=== PATIENT | male | born 1975 | race Caucasian/White ===

== ENCOUNTER 2016-02-16 20:13 | Emergency (ER) | payer BC, MEDICAID, OTHER ==
[~2016-02-16] VITALS: Ht 170.2 cm; Wt 100.0 kg
[~2016-02-16 20:13] MED LIST: ACET500C5 PO; BUSP15TA3 PO; BUTA1CAP39 PO; CITA-104 PO; IBUP400T22 PO; ONDA4TAB35 PO; OSLT75C PO; UDROBDM PO
[2016-02-16 20:35] VITALS: Ht 170.2 cm; Wt 100.0 kg
[2016-02-16] MEDS ORDERED: IBUP-1542 PO (21:17)
[2016-02-16] MEDS ORDERED: BENZ100C70 PO (21:17)
[2016-02-16] MEDS ORDERED: ALBU8.5H3 INH (21:17)
[2016-02-16] MEDS ORDERED: CETI10CA PO (21:17)
[2016-02-16] MEDS ORDERED: FLUT16SP17 NASAL (21:17)
--- NOTE | 2016-02-16 21:42 | ERD ---
ER Documentation Chief Complaint Date/Time DATE: 02/16/16 TIME: 21:37 Chief Complaint flu-like symptoms w/fever,HAs,bodyaches pains,sore throat for 3 days HPI 40 year old male presents here in the ER for complaints of cough, runny nose, nasal congestion, bodyaches, headache, 3 days. Patient has been having dry cough , does not cough up any phlegm or blood. Patient does not have any shortness breath or wheezing. Patient did not take any medications of her symptoms. Patient denies any chest pain or palpitations. Patient denies any vomiting. Patient complaining of sore throat, burning pain, for/10 scale, is worse upon swallowing. ROS All systems reviewed and are negative except as per history of present illness. Medications Home Meds Active Scripts Cetirizine Hcl* (Zyrtec*) 10 Mg Capsule, 10 MG PO DAILY, #30 TAB.CHEW Prov:AL CRUMP NP 02/16/16 Benzonatate* (Tessalon Perle*) 100 Mg Capsule, 100 MG PO Q8H Y for COUGH, #20 CAP Prov:AL CRUMP NP 02/16/16 Ibuprofen* (Motrin*) 600 Mg Tab, 600 MG PO Q6H Y for PAIN AND OR ELEVATED TEMP, #30 TAB Prov:AL CRUMP NP 02/16/16 Fluticasone Propionate* (Fluticasone Propionate* Nasal) 50 Mcg/[place] - 16 Gm [place].susp, 2 SPRAYS NASAL DAILY, #1 BOTTLE TO EACH NOSTRIL Prov:AL CRUMP NP 02/16/16 Albuterol Sulfate* (Proair HFA*) 8.5 Gm Hfa.aer.ad, 2 PUFF INH Q4H Y for WHEEZING AND SOB, #1 INHALER Prov:AL CRUMP NP 02/16/16 Oseltamivir Phosphate* (Tamiflu*) 75 Mg Capsule, 75 MG PO BID, #10 CAP 0 Refills Prov:DILLAN VIDAL PA-C 06/14/15 Guaifenesin-Dextromethorphan* (Robitussin* DM) 100MG/10MG/5ML Syrup, 5 ML PO Q6H Y for COUGH, #120 ML 0 Refills Prov:NOA VIDALNEGRA XIAO 06/14/15 Ibuprofen* (Motrin*) 400 Mg Tab, 400 MG PO Q6, #30 TAB 0 Refills Prov:DILLAN VIDAL NINOSKA 06/14/15 Acetaminophen* (Tylophen*) 500 Mg Capsule, 1 CAP PO Q6H Y for PAIN AND OR ELEVATED TEMP, #30 CAP 0 Refills Prov:YOUNGDILLAN XIAO 06/14/15 Ondansetron Hcl* (Zofran* ODT) 4 mg -ODT Tab.disper, 4 MG PO Q8 Y for NAUSEA AND /OR VOMITING, #30 TAB Prov:AL CRUMP NP 04/04/15 Pbbzzjfnovqvr-Npitecyzsl-Blgzqjzs-Codeine* (Fioricet w/ Codeine*) [id number]- 30MG Capsule, 1 CAP PO Q6H Y for PAIN LEVEL 1-5, #20 CAP Prov:AL CRUMP WELLNESS NURSE RN 04/04/15 Reported Medications Citalopram Hydrobromide* (Citalopram Hydrobromide*) 40 Mg Tablet, 40 MG PO DAILY 04/04/15 Buspirone Hcl* (Buspirone Hcl*) 15 Mg Tablet, 15 MG PO TID 04/04/15 Allergies Allergies: Coded Allergies: No Known Drug Allergies (Verified Allergy, Unknown, 08/13/13) PMhx/Soc History of Surgery: Yes (HAND AND ARM SURGERY) Anesthesia Reaction: No Hx Neurological Disorder: No Hx Respiratory Disorders: No Hx Cardiac Disorders: No Hx Psychiatric Problems: No Hx Miscellaneous Medical Probl: No (DEPRESSION) Hx Alcohol Use: Yes Hx Substance Use: No Hx Tobacco Use: Yes Smoking Status: Current every day smoker FmHx Family History: No coronary disease, No diabetes, No other Physical Exam Vitals Vital Signs Date Time Temp Pulse Resp B/P Pulse Ox O2 Delivery O2 Flow Rate FiO2 02/16/16 20:35 98.4 90 18 118/65 97 Physical Exam GENERAL: The patient is well developed and appropriate for usual state of health, in no apparent distress. HEENT: Atraumatic. Ears: Normal tympanic membrane, no erythema or bulging. No ear canal swelling. No ear discharge. Nose: Erythematous nasal turbinates with clear nasal discharge. Throat: oropharynx erythematous with postnasal drip. No tonsillar swelling or tonsillar exudates. No lymphadenopathy. CHEST: Clear to auscultation bilaterally. There are no rales, wheezes or rhonchi. HEART: Regular rate and rhythm. No murmurs, clicks, rubs or gallops. No S3 or S4. ABDOMEN: Soft, nontender and nondistended. Good bowel sounds. No rebound or guarding. No gross peritonitis. No gross organomegaly or masses. No Reece sign or McBurney point tenderness. BACK: No midline or flank tenderness. EXTREMITIES: Equal pulses bilaterally. There is no peripheral clubbing, cyanosis or edema. No focal swelling or erythema. Full range of motion. Grossly neurovascularly intact. NEURO: Alert and oriented. Cranial nerves 2-12 intact. Motor strength in all 4 extremities with 5/5 strength. Sensation grossly intact. Normal speech and gait. SKIN: There is no apparent rash or petechia. The skin is warm and dry. HEMATOLOGIC AND LYMPHATIC: There is no evidence of excessive bruising or lymphedema. No gross cervical, axillary, or inguinal lymphadenopathy. Procedures/MDM Medical Decision Making: Patient symptoms are most likely consistent with upper respiratory tract infection, which viral in origin. There is low suspicion for Pneumonia at this time since patients lungs sounds are clear, patient O2 saturation is normal and patient doesnt show any respiratory distress. Radiology exam is not indicated at this time is. There is low suspicion for other cardiopulmonary emergencies at this time such as CHF, Pulmonary Embolism, Pneumothorax, or any other cardiopulmonary emergencies at this time. There is low suspicion for sepsis. Patient appears well and is hemodynamically stable. Fever is controlled with medicines. Disposition: Home. Condition: Stable Prescriptions: guaifenesin DM, Zyrtec, ibuprofen and albuterol, Flonase. Instructions: Patient is advised to take medications as prescribed. Patient is advised to rest. Patient advised to increase fluid intake, do humidifier at home and if possible, do salt water gargles. Patient is advised that if symptoms are worse, shortness of breath, uncontrolled fever, stridor, vomiting, worst signs and symptoms to return to emergency department immediately. Otherwise, patient is advised to follow up with primary doctor in 5-7 days. Departure Diagnosis: Primary Impression: Upper respiratory infection URI type: unspecified viral URI Qualified Code: J06.9 - Viral upper respiratory tract infection Condition: Stable Patient Instructions: Uri, Viral, No Abx (Adult) AL CRUMP NP Feb 16, 2016 21:41
== END 2016-02-16 21:26 | disposition home or self-care (01) ==
LOC: FTE 20:13
DX: J06.9 Acute upper respiratory infection, unspecified (principal); F17.210 Nicotine dependence, cigarettes, uncomplicated; R09.81 Nasal congestion; R51 Headache; M79.1 Myalgia
CPT/HCPCS: 99284

== ENCOUNTER 2016-11-30 09:41 | Emergency (ER) | payer OTHER ==
[~2016-11-30] VITALS: Ht 170.2 cm; Wt 101.0 kg
[~2016-11-30 09:41] MED LIST changes: +ALBU8.5H3 INH; +BENZ100C70 PO; +CETI10CA PO; +FLUT16SP17 NASAL; +IBUP-1542 PO
[2016-11-30 09:45] VITALS: Ht 170.2 cm; Wt 101.0 kg
[2016-11-30] MEDS ORDERED: ONDANSETRON 4 MG INJ IV STA (10:34)
[2016-11-30] MEDS ORDERED: HYDROmorphONE 1 MG/ML SYG IV STA (10:34)
[2016-11-30] MEDS ORDERED: SOD CHLORIDE 0.9% 1,000 ML IV STA (10:34)
[2016-11-30 11:35] LABS: BASOPHILS % 0.3 % (0.0-2.0); EOSINOPHILS # 0.2 10^3/ul (0.0-0.5); EOSINOPHILS % 2.7 % (0.0-7.0); HEMATOCRIT 43.1 % (42.0-52.0); HEMOGLOBIN 14.8 g/dl (14.0-18.0); LYMPHOCYTES # 2.2 10^3/ul (0.8-2.9); LYMPHOCYTES % 29.6 % (15.0-51.0); MEAN CORPUSCULAR HEMOGLOBIN 30.6 pg (29.0-33.0); MEAN CORPUSCULAR HGB CONC 34.3 g/dl (32.0-37.0); MEAN CORPUSCULAR VOLUME 89.2 fl (82.0-101.0); MONOCYTE # 0.6 10^3/ul (0.3-0.9); MONOCYTES % 8.4 % (0.0-11.0); NEUTROPHIL # 4.4 10^3/ul (1.6-7.5); NEUTROPHILS % 58.6 % (39.0-77.0); PLATELET COUNT 245 10^3/UL (140-415); RED BLOOD COUNT 4.83 10^6/ul (4.70-6.10); RED CELL DISTRIBUTION WIDTH 12.4 % (11.5-14.5); WHITE BLOOD COUNT 7.5 10^3/ul (4.8-10.8)
[2016-11-30 12:01] LABS: ALBUMIN 4.7 g/dl (3.3-4.9); ALBUMIN/GLOBULIN RATIO 1.51; BILIRUBIN,INDIRECT 0.2 mg/dl (0-1.1); BILIRUBIN,TOTAL 0.2 mg/dl (0.2-1.3); CALCIUM 9.3 mg/dl (8.4-10.2); CREATININE 0.91 mg/dl (0.61-1.24); POTASSIUM 3.9 mmol/L (3.5-5.1); TOTAL PROTEIN 7.8 g/dl (6.1-8.1)
[2016-11-30] MEDS ORDERED: SOD CHLORIDE 0.9% 100 ML ONE (12:24)
[2016-11-30] MEDS ORDERED: IOHEXOL 300MG/ML 150 ML BTL ONE (12:24)
--- NOTE | 2016-11-30 13:03 | RADRPT ---
PROCEDURE: CT Abdomen and Pelvis with contrast. CLINICAL INDICATION: Lower abdominal pain TECHNIQUE: CT of the abdomen and pelvis was performed on a multi-detector scanner following the un complicated IV administration of 100 cc of Omnipaque 300. Coronal and sagittal images were reformat mary from the axial data set. One or more of the following dose reduction techniques were used: auto mated exposure control, adjustment of the mA and/or kV according to patient size, use of iterative r econstruction technique. CTDI = 20.49 mGy. DLP = 1288.47 mGy-cm. COMPARISON: None. FINDINGS: The lung bases are clear. The heart size is normal, without pericardial effusion. Hepatomegaly (22 cm) and hepatic steatosis are noted. No focal hepatic mass is identified. Gallbladder, biliary tree , pancreas, spleen, adrenal glands and kidneys are unremarkable. No urolithiasis or obstructive urop athy is identified. The stomach is grossly unremarkable. There is no abdominal aortic aneurysm or dissection. There is no retroperitoneal lymphadenopathy. The luke hepatis region is clear. No bowel obstruction, free intraperitoneal air or abscess is identified. The appendix is well visual ized and normal. There is no diverticulosis, diverticulitis or colitis. Urinary bladder is grossly u nremarkable. No pelvic mass, free fluid or lymphadenopathy is identified. The surrounding osseous structures are unremarkable. No osteolytic or osteoblastic lesion is detect ed. IMPRESSION: 1. Hepatic steatosis and hepatomegaly are noted. 2. No urolithiasis or obstructive uropathy is seen. 3. No mass, lymphadenopathy, or focal acute inflammatory process is identified. RPTAT: AAQQ .Markel Lewis MD, Date Time Electronically viewed and signed by .Markel Lewis MD, MD on 11/30/2016 13:03 .R/
[2016-11-30 14:00] LABS: URINE BLOOD (Dip) POC Negative (NEGATIVE)
[2016-11-30] MEDS ORDERED: HYDR-902 PO (14:21)
[2016-11-30] MEDS ORDERED: METH750T93 PO (14:21)
[2016-11-30] MEDS ORDERED: IBUP-1542 PO (14:21)
--- NOTE | 2016-11-30 14:25 | ERD ---
ER Documentation Chief Complaint Chief Complaint pelvic pain radiating to back x6 days, on augmentin by pmd HPI This is a 41-year-old male complains of lumbar sacral tenderness and pain described as sharp worse with movement for the past 6-7 days. He had no trauma. The pain is worse with twisting and bending forward. Also complaining of some suprapubic pain but does not have any nausea vomiting diarrhea fever dysuria hematuria. He was put on an antibiotic he states for an infection but does not know if he was in his urine or his abdomen. ROS All systems reviewed and are negative except as per history of present illness. Medications Home Meds Active Scripts Ibuprofen* (Motrin*) 600 Mg Tab, 600 MG PO Q8, #30 TAB Prov:STUART ALVARADO DO 11/30/16 Methocarbamol* (Robaxin*) 750 Mg Tablet, 750 MG PO TID, #20 TAB Prov:STUART ALVARADO DO 11/30/16 Hydrocodone/Acetaminophen ([place] 10-325 Tablet) 1 Each Tablet, 1 TAB PO Q6H Y for PAIN, #20 TAB Prov:STUART ALVARADO DO 11/30/16 Cetirizine Hcl* (Zyrtec*) 10 Mg Capsule, 10 MG PO DAILY, #30 TAB.CHEW Prov:AL CRUMP WASTE COLLECTOR 02/16/16 Benzonatate* (Tessalon Perle*) 100 Mg Capsule, 100 MG PO Q8H Y for COUGH, #20 CAP Prov:AL CRUMP NP 02/16/16 Ibuprofen* (Motrin*) 600 Mg Tab, 600 MG PO Q6H Y for PAIN AND OR ELEVATED TEMP, #30 TAB Prov:AL CRUMP WASTE COLLECTOR 02/16/16 Fluticasone Propionate* (Fluticasone Propionate* Nasal) 50 Mcg/[place] - 16 Gm [place].susp, 2 SPRAYS NASAL DAILY, #1 BOTTLE TO EACH NOSTRIL Prov:AL CRUMP NP 02/16/16 Albuterol Sulfate* (Proair HFA*) 8.5 Gm Hfa.aer.ad, 2 PUFF INH Q4H Y for WHEEZING AND SOB, #1 INHALER Prov:AL CRUMP WASTE COLLECTOR 02/16/16 Oseltamivir Phosphate* (Tamiflu*) 75 Mg Capsule, 75 MG PO BID, #10 CAP 0 Refills Prov:DILLAN VIDAL PA-C 06/14/15 Guaifenesin-Dextromethorphan* (Robitussin* DM) 100MG/10MG/5ML Syrup, 5 ML PO Q6H Y for COUGH, #120 ML 0 Refills Prov:IDLLAN VIDAL PA-C 06/14/15 Ibuprofen* (Motrin*) 400 Mg Tab, 400 MG PO Q6, #30 TAB 0 Refills Prov:DILLAN VIDAL PA-C 06/14/15 Acetaminophen* (Tylophen*) 500 Mg Capsule, 1 CAP PO Q6H Y for PAIN AND OR ELEVATED TEMP, #30 CAP 0 Refills Prov:DILLAN VIDAL PA-C 06/14/15 Ondansetron Hcl* (Zofran* ODT) 4 mg -ODT Tab.disper, 4 MG PO Q8 Y for NAUSEA AND /OR VOMITING, #30 TAB Prov:AL CRUMP WASTE COLLECTOR 04/04/15 Swykvnvafkrig-Txtikxjuon-Qllibnup-Codeine* (Fioricet w/ Codeine*) [id number]- 30MG Capsule, 1 CAP PO Q6H Y for PAIN LEVEL 1-5, #20 CAP Prov:AL CRUMP WASTE COLLECTOR 04/04/15 Reported Medications Citalopram Hydrobromide* (Citalopram Hydrobromide*) 40 Mg Tablet, 40 MG PO DAILY 04/04/15 Buspirone Hcl* (Buspirone Hcl*) 15 Mg Tablet, 15 MG PO TID 04/04/15 Allergies Allergies: Coded Allergies: No Known Drug Allergies (Verified Allergy, Unknown, 08/13/13) PMhx/Soc History of Surgery: Yes (HAND AND ARM SURGERY) Anesthesia Reaction: No Hx Neurological Disorder: No Hx Respiratory Disorders: No Hx Cardiac Disorders: No Hx Psychiatric Problems: No Hx Miscellaneous Medical Probl: No (DEPRESSION) Hx Alcohol Use: No Hx Substance Use: No Hx Tobacco Use: Yes Smoking Status: Current every day smoker FmHx Family History: No coronary disease Physical Exam Vitals Vital Signs Date Time Temp Pulse Resp B/P Pulse Ox O2 Delivery O2 Flow Rate FiO2 11/30/16 09:45 96.9 80 20 116/66 98 Physical Exam Const: Well-developed, well-nourished Head: Atraumatic, normocephalic Eyes: Normal Conjunctiva, PERRLA, EOMI, normal sclera, no nystagmus ENT: Normal External Ears, Nose and Mouth, moist mucus membranes. Neck: Full range of motion. No meningismus, no lymphadenopathy. Resp: Clear to auscultation bilaterally, no wheezing, rhonchi, rales Cardio: Regular rate and rhythm, no murmurs, S1 S2 present Abd: Soft, minimal suprapubic tenderness non distended. Normal bowel sounds, no guarding or rebound, no pulsitile abdominal masses or bruits Skin: No petechiae or rashes, no ecchymosis , no maculopapular rash Back: [There is tenderness to the lumbosacral junction at the midline that is very mild. Pain is worse with movement. Ext: No cyanosis, or edema, FROM x 4, normal inspection, neurovascularly intact x 4 Neur: Awake and alert, STR 5/5 x 4, sensation intact x 4, no focal findings, cerebellum intact Psych: Normal Mood and Affect Result Diagram: 11/30/16 1110 11/30/16 1110 Results 24 hrs Laboratory Tests Test 11/30/16 11:10 11/30/16 13:59 White Blood Count 7.510^3/ul Red Blood Count 4.8310^6/ul Hemoglobin 14.8g/dl Hematocrit 43.1% Mean Corpuscular Volume 89.2fl Mean Corpuscular Hemoglobin 30.6pg Mean Corpuscular Hemoglobin Concent 34.3g/dl Red Cell Distribution Width 12.4% Platelet Count 54573^3/UL Mean Platelet Volume 10.0fl Neutrophils % 58.6% Lymphocytes % 29.6% Monocytes % 8.4% Eosinophils % 2.7% Basophils % 0.3% Nucleated Red Blood Cells % 0.0/100WBC Neutrophils # 4.410^3/ul Lymphocytes # 2.210^3/ul Monocytes # 0.610^3/ul Eosinophils # 0.210^3/ul Basophils # 0.010^3/ul Nucleated Red Blood Cells # 0.010^3/ul Sodium Level 143mmol/L Potassium Level 3.9mmol/L Chloride Level 109mmol/L Carbon Dioxide Level 23mmol/L Anion Gap 15 Blood Urea Nitrogen 16mg/dl Creatinine 0.91mg/dl Glucose Level 84mg/dl Calcium Level 9.3mg/dl Total Bilirubin 0.2mg/dl Direct Bilirubin 0.00mg/dl Indirect Bilirubin 0.2mg/dl Aspartate Amino Transf (AST/SGOT) 35IU/L Alanine Aminotransferase (ALT/SGPT) 54IU/L Alkaline Phosphatase 69IU/L Total Protein 7.8g/dl Albumin 4.7g/dl Globulin 3.10g/dl Albumin/Globulin Ratio 1.51 Bedside Urine pH (LAB) 5.0 Bedside Urine Protein (LAB) Negative Bedside Urine Glucose (UA) Negative Bedside Urine Ketones (LAB) Negative Bedside Urine Blood Negative Bedside Urine Nitrite (LAB) Negative Bedside Urine Leukocyte Esterase (L Negative Current Medications Medications (Trade) Dose Ordered Sig/Clarisa Route PRN Reason Start Time Stop Time Status Last Admin Dose Admin Sodium Chloride (NS) 1,000 ml @ 1,000 mls/hr Q1H STAT IV 11/30/16 10:34 11/30/16 11:33 DC 11/30/16 11:23 Hydromorphone HCl (Dilaudid) 1 mg ONCE STAT IV 11/30/16 10:34 11/30/16 10:36 DC 11/30/16 11:24 Ondansetron HCl (Zofran Inj) 4 mg ONCE STAT IV 11/30/16 10:34 11/30/16 10:36 DC 11/30/16 11:24 IV Flush 10 ml 10 ml STK-MED ONCE .ROUTE 11/30/16 12:24 11/30/16 12:25 DC 11/30/16 12:57 Sodium Chloride (NS) 100 ml @ ud STK-MED ONCE .ROUTE 11/30/16 12:24 11/30/16 12:25 DC 11/30/16 12:57 Iohexol (Omnipaque 300mg/ ml) 150 ml STK-MED ONCE .ROUTE 11/30/16 12:24 11/30/16 12:25 DC 11/30/16 12:58 Procedures/MDM PROCEDURE: CT Abdomen and Pelvis with contrast. CLINICAL INDICATION: Lower abdominal pain TECHNIQUE: CT of the abdomen and pelvis was performed on a multi-detector scanner following the uncomplicated IV administration of 100 cc of Omnipaque 300. Coronal and sagittal images were reformatted from the axial data set. One or more of the following dose reduction techniques were used: automated exposure control, adjustment of the mA and/or kV according to patient size, use of iterative reconstruction technique. CTDI = 20.49 mGy. DLP = 1288.47 mGy-cm. COMPARISON: None. FINDINGS: The lung bases are clear. The heart size is normal, without pericardial effusion. Hepatomegaly (22 cm) and hepatic steatosis are noted. No focal hepatic mass is identified. Gallbladder, biliary tree, pancreas, spleen, adrenal glands and kidneys are unremarkable. No urolithiasis or obstructive uropathy is identified. The stomach is grossly unremarkable. There is no abdominal aortic aneurysm or dissection. There is no retroperitoneal lymphadenopathy. The luke hepatis region is clear. No bowel obstruction, free intraperitoneal air or abscess is identified. The appendix is well visualized and normal. There is no diverticulosis, diverticulitis or colitis. Urinary bladder is grossly unremarkable. No pelvic mass, free fluid or lymphadenopathy is identified. The surrounding osseous structures are unremarkable. No osteolytic or osteoblastic lesion is detected. IMPRESSION: 1. Hepatic steatosis and hepatomegaly are noted. 2. No urolithiasis or obstructive uropathy is seen. 3. No mass, lymphadenopathy, or focal acute inflammatory process is identified. RPTAT: AAQQ .Markel Lewis MD, MD Date Time Electronically viewed and signed by .Markel Lewis MD, on 11/30/2016 13: 03 .R/ CC: STUART ALVARADO DO Blood work looks unremarkable as does his CT scan of abdomen. No signs of appendicitis or intra-abdominal pathology. Likely has musculoskeletal pain in the back do not know why his suprapubic tenderness but there is no signs of UTI or other pathology Departure Diagnosis: Primary Impression: Back pain Back pain location: low back pain Chronicity: acute Back pain laterality: midline Sciatica presence: without sciatica Qualified Code: M54.5 - Acute midline low back pain without sciatica Additional Impression: Pelvic pain in male Condition: Stable Patient Instructions: Back Pain (Acute Or Chronic) STUART ALVARADO DO Nov 30, 2016 14:25
[2016-11-30 14:49] LABS: ADD UMIC NO; UR ASCORBIC ACID NEGATIVE (NEGATIVE); UR BILIRUBIN (Dip) NEGATIVE (NEGATIVE); UR BLOOD (Dip) NEGATIVE (NEGATIVE); UR CLARITY CLEAR (CLEAR); UR COLOR YELLOW (YELLOW); UR GLUCOSE (Dip) NEGATIVE (NEGATIVE); UR KETONES (Dip) NEGATIVE (NEGATIVE); UR LEUKOCYTE ESTERASE (Dip) NEGATIVE Leu/ul (NEGATIVE); UR NITRITE (Dip) NEGATIVE (NEGATIVE); UR SPECIFIC GRAVITY (Dip) > 1.060 (1.003-1.030); UR TOTAL PROTEIN (Dip) NEGATIVE (NEGATIVE); UR UROBILINOGEN (Dip) NEGATIVE (NEGATIVE)
== END 2016-11-30 14:50 | disposition home or self-care (01) ==
LOC: FTE 09:41
DX: M54.5 Low back pain (principal); F17.210 Nicotine dependence, cigarettes, uncomplicated
CPT/HCPCS: 36415; 74177; 80053; 81003; 85025; 96374; 96375; J1170; J2405; J7030; Q9967; Z7502; Z7610

== ENCOUNTER 2017-02-22 16:25 | Emergency (ER) | END 2017-02-22 18:44 | disposition home or self-care (01) ==

== ENCOUNTER 2018-09-02 18:31 | Emergency (ER) | payer OTHER ==
[~2018-09-02] VITALS: Ht 170.2 cm; Wt 100.0 kg
[~2018-09-02 18:31] MED LIST changes: -ALBU8.5H3 INH; +ALBU8.5H8 INH; +AZIT250T PO; +BENZ-6 PO; -BENZ100C70 PO; -CITA-104 PO; +CITA40TA6 PO; +GUAI5SYR2 PO; +HYDR-3980 PO; +IBUP-1561 PO; -IBUP400T22 PO; +METH750T93 PO; +OSEL75CA23 PO; -OSLT75C PO; -UDROBDM PO
[2018-09-02 18:55] VITALS: Ht 170.2 cm; Wt 100.0 kg
[2018-09-02 20:17] VITALS: BP 121/83; PULSE 86; RESP 14
[2018-09-02] MEDS ORDERED: HYDR-842 PO (21:53)
[2018-09-02] MEDS ORDERED: FAMOTIDINE 20 MG INJ IV ONE (22:30)
[2018-09-02] MEDS ORDERED: LIDOCAINE/MYLANTA 40 ML BTL PO ONE (22:30)
--- NOTE | 2018-09-02 22:40 | ERD ---
ER Documentation Chief Complaint Chief Complaint chest pain since yesterday HPI This is a 43-year-old male with no reported chronic medical history who is presenting with 1 to 2 days of waxing and waning moderate sharp burning midste rnal chest pain radiating from the epigastrium superiorly into his throat with nausea but no vomiting, exacerbated by eating. The patient denies shortness of breath or diaphoresis or nausea or vomiting or lightheadedness or dizziness. The patient denies feeling sick recently. The patient denies fever or chills. The patient has had no headache or vision changes. The patient does not endorse neck or back pain. The patient denies changes to bowel movements or urination. The patient has had no focal deficits. The patient has had no weakness or numbness or tingling to the face or extremities. ROS All systems reviewed and are negative except as per history of present illness. Medications Home Meds Active Scripts Ondansetron Hcl* (Zofran*) 8 Mg Tablet, 8 MG PO Q6H PRN for NAUSEA AND OR VOMITING, #20 TAB Prov:KENDY CHEEMA MD 09/02/18 Famotidine* (Pepcid*) 20 Mg Tablet, 20 MG PO BID for 14 Days, TAB Prov:KENDY CHEEMA MD 09/02/18 Reported Medications Hydroxyzine Hcl* (Atarax*) 25 Mg Tab, 25 MG PO DAILY for 30 Days, #30 09/02/18 Citalopram Hydrobromide* (Citalopram Hydrobromide*) 40 Mg Tablet, 40 MG PO DAILY 04/04/15 Buspirone Hcl* (Buspirone Hcl*) 15 Mg Tablet, 15 MG PO TID 04/04/15 Discontinued Scripts Cetirizine Hcl* (Zyrtec*) 10 Mg Capsule, 10 MG PO DAILY, #30 TAB.CHEW Prov:AL CRUMP NP 02/22/17 Albuterol Sulfate* (Proair HFA*) 8.5 Gm Hfa.aer.ad, 2 PUFF INH Q4H PRN for WHEEZING AND SOB, #1 INHALER Prov:AL CRUMP NP 02/22/17 Benzonatate* (Tessalon Perle*) 100 Mg Capsule, 100 MG PO Q8H PRN for COUGH, #20 CAP Prov:AL CRUMP NP 02/22/17 Acetaminophen* (Tylophen*) 500 Mg Capsule, 1 CAP PO Q6H PRN for PAIN AND OR ELEVATED TEMP, #20 CAP Prov:AL CRUMP [employer]ERIALS PLANNER/PRODUCTION PLANNER 02/22/17 Ibuprofen* (Motrin*) 600 Mg Tab, 600 MG PO Q6H PRN for PAIN AND OR ELEVATED TEMP, #30 TAB Prov:AL CRUMP [employer]ERIALS PL[employer]NER/PRODUCTION [employer]ANNER 02/22/17 Azithromycin* (Zithromax*) 250 Mg Tablet, 250 MG PO .ZPACK DIRECTED, #6 TAB TAKE 500 MG (2 TABS) THE FIRST DAY THEN 250 MG (1 TAB) DAYS 2-5 Prov:AL CRUMP NP 02/22/17 Ibuprofen* (Motrin*) 600 Mg Tab, 600 MG PO Q8, #30 TAB Prov:STUART ALVARADO DO 11/30/16 Methocarbamol* (Robaxin*) 750 Mg Tablet, 750 MG PO TID, #20 TAB Prov:EVELIA ALVARADOSTYAMILE Palencia DO 11/30/16 Hydrocodone/Acetaminophen ([place] 10-325 Tablet) 1 Each Tablet, 1 TAB PO Q6H PRN for PAIN, #20 TAB Prov:STUART ALVARADO DO 11/30/16 Cetirizine Hcl* (Zyrtec*) 10 Mg Capsule, 10 MG PO DAILY, #30 TAB.CHEW Prov:AL CRUMP NP 02/16/16 Benzonatate* (Tessalon Perle*) 100 Mg Capsule, 100 MG PO Q8H PRN for COUGH, #20 CAP Prov:AL CRUMP NP 02/16/16 Ibuprofen* (Motrin*) 600 Mg Tab, 600 MG PO Q6H PRN for PAIN AND OR ELEVATED TEMP, #30 TAB Prov:AL CRUMP NP 02/16/16 Fluticasone Propionate* (Fluticasone Propionate* Nasal) 50 Mcg/[place] - 16 Gm [place].susp, 2 SPRAYS NASAL DAILY, #1 BOTTLE TO EACH NOSTRIL Prov:AL CRUMP NP 02/16/16 Albuterol Sulfate* (Proair HFA*) 8.5 Gm Hfa.aer.ad, 2 PUFF INH Q4H PRN for WHEEZING AND SOB, #1 INHALER Prov:AL CRUMP NP 02/16/16 Oseltamivir Phosphate* (Tamiflu*) 75 Mg Capsule, 75 MG PO BID, #10 CAP 0 Refills Prov:DILLAN VIDAL PA-C 06/14/15 Guaifenesin-Dextromethorphan* (Robitussin* DM) 100MG/10MG/5ML Syrup, 5 ML PO Q6H PRN for COUGH, #120 ML 0 Refills Prov:DILLAN VIDAL PA-C 06/14/15 Ibuprofen* (Motrin*) 400 Mg Tab, 400 MG PO Q6, #30 TAB 0 Refills Prov:DILLAN VIDAL PA-C 06/14/15 Acetaminophen* (Tylophen*) 500 Mg Capsule, 1 CAP PO Q6H PRN for PAIN AND OR ELEVATED TEMP, #30 CAP 0 Refills Prov:DILLAN VIDAL PA-C 06/14/15 Ondansetron Hcl* (Zofran* ODT) 4 mg -ODT Tab.disper, 4 MG PO Q8 PRN for NAUSEA AND/OR VOMITING, #30 TAB Prov:AL CRUMP NP 04/04/15 Ijknydavuoqia-Jzahvjmpul-Qzdkaskq-Codeine* (Fioricet w/ Codeine*) [id number] Capsule, 1 CAP PO Q6H PRN for PAIN LEVEL 1-5, #20 CAP Prov:AL CRUMP NP 04/04/15 Allergies Allergies: Coded Allergies: No Known Drug Allergies (Unverified Allergy, Unknown, 09/02/18) PMhx/Soc History of Surgery: Yes (HAND AND ARM SURGERY) Anesthesia Reaction: No Hx Neurological Disorder: No Hx Respiratory Disorders: No Hx Cardiac Disorders: No Hx Psychiatric Problems: No Hx Miscellaneous Medical Probl: Yes (DEPRESSION) Hx Alcohol Use: No Hx Substance Use: No Hx Tobacco Use: Yes Smoking Status: Current every day smoker Physical Exam Vitals Vital Signs Date Temp Pulse Resp B/P (MAP) Pulse Ox O2 O2 Flow FiO2 Time Delivery Rate 09/02/18 86 14 121/83 98 Room Air 20:17 (96) 09/02/18 98.3 87 18 126/67 99 18:55 (86) Physical Exam Const: No acute distress Head: Atraumatic Eyes: Normal Conjunctiva ENT: Normal External Ears, Nose and Mouth. Neck: Full range of motion. No meningismus. Resp: Clear to auscultation bilaterally Cardio: Regular rate and rhythm, no murmurs Abd: Soft, non tender, non distended. Normal bowel sounds Skin: No petechiae or rashes Back: No midline or flank tenderness Ext: No cyanosis, or edema Neur: Awake and alert Psych: Normal Mood and Affect Result Diagram: 09/02/18204809/02/182031 Results 24 hrs Laboratory Tests Test 09/02/18 20:32 09/02/18 20:49 Prothrombin Time 12.9 Sec Prothrombin Time Ratio 1.0 INR International Normalized Ratio 0.96 Sodium Level 142 mmol/L Potassium Level 4.1 mmol/L Chloride Level 106 mmol/L Carbon Dioxide Level 26 mmol/L Anion Gap 10 Blood Urea Nitrogen 13 mg/dl Creatinine 0.96 mg/dl Est Glomerular Filtrat Rate mL/min > 60 mL/min Glucose Level 130 mg/dl Calcium Level 9.6 mg/dl Troponin I < 0.012 ng/ml B-Type Natriuretic Peptide 13 PG/ML White Blood Count 8.5 10^3/ul Red Blood Count 4.39 10^6/ul Hemoglobin 13.5 g/dl Hematocrit 39.8 % Mean Corpuscular Volume 90.7 fl Mean Corpuscular Hemoglobin 30.8 pg Mean Corpuscular Hemoglobin Concent 33.9 g/dl Red Cell Distribution Width 12.3 % Platelet Count 207 10^3/UL Mean Platelet Volume 10.0 fl Immature Granulocytes % 0.200 % Neutrophils % 64.3 % Lymphocytes % 27.1 % Monocytes % 7.1 % Eosinophils % 1.1 % Basophils % 0.2 % Nucleated Red Blood Cells % 0.0 /100WBC Immature Granulocytes # 0.020 10^3/ul Neutrophils # 5.5 10^3/ul Lymphocytes # 2.3 10^3/ul Monocytes # 0.6 10^3/ul Eosinophils # 0.1 10^3/ul Basophils # 0.0 10^3/ul Nucleated Red Blood Cells # 0.0 10^3/ul Current Medications Medications Dose Sig/Clarisa Start Time Status Last (Trade) Ordered Route PRN Stop Time Admin Dose Reason Admin Famotidine 20 mg ONCE ONCE 09/02/18 DC 09/02/18 (Pepcid Iv) IV 22:30 22:54 09/02/18 22:31 40 ml ONCE ONCE 09/02/18 DC 09/02/18 Miscellaneous PO 22:30 22:54 Medication 09/02/18 22:31 (Gi Cocktail (2)) Procedures/MDM MDM The patient's presentation warrants further investigation. Previous medical records, if available, were reviewed. LABS The patient's laboratory testing was obtained and reviewed. No emergent treatment was required unless described below. CBC: Normocytic anemia, not emergent. No E/o systemic infection or thrombocytopenia Chemistry: No E/o severe acidosis or alkalosis or renal failure or diabetic ketoacidosis Troponin: No E/o acute ischemia BNP: No E/o heart failure EKG EKG read by me: Rate/Rhythm: Regular rate and rhythm at a rate of 84 bpm Intervals: Normal [place]: Normal Impression: No evidence of acute ischemia or arrhythmia IMAGING Imaging and Radiology interpretation reviewed. CXR FINDINGS: The heart is not enlarged. Minimal degenerative enthesopathy in mid thoracic spine. The lungs are clear. There is no pleural effusion or pneumothorax. ECG leads project over the chest. IMPRESSION: No acute disease. Electronically viewed and signed by .Ulysses Barth MD, MD on 09/02/2018 21:26 TREATMENT/DISPOSITION The patient presents for epigastric and chest pain, exacerbated with eating. Gastritis versus GERD versus PUD are all possibilities. The patient was treated with Pepcid and a GI cocktail in the emergency department with some improvement of symptoms. I do not see evidence of viscus perforation. The patient does not have any evidence of peritonitis. The patient does not have clinical symptoms concerning for mesenteric ischemia or ischemic colitis. The patient does not have right upper quadrant tenderness, and I have low suspicion for gallstones, cholecystitis or biliary colic. The patient does not have left upper quadrant tenderness. I have low suspicion for pancreatitis. The patient does not have any right lower quadrant tenderness, or periumbilical tenderness. I have low suspicion for appendicitis. The patient does not have suprapubic tenderness. I have decreased suspicion for cystitis. The patient does not have any left lower quadrant tenderness, and I have low suspicion for diverticulosis or diverticulitis. The patient does not have any flank tenderness. The patient does not have gross hematuria. I have decreased suspicion for nephrolithiasis or renal colic. The patient does not have any palpable pulsatile mass or severe abdominal pain radiating to the back. I have low suspicion for aortic aneurysm, dissection or rupture. Given that the patient endorsed chest pain, a cardiac work-up was also completed. The patient's chest xray does not reveal pneumonia or pneumothorax or pleural effusions or pulmonary edema. The patient does not have a widened mediastinum and does not have signs or symptoms concerning for thoracic aortic aneurysm or dissection. The patient does not have pneumomediastinum or signs concerning for esophageal tear or rupture. The patient has no clinical or radiographic signs of pericardial effusion or tamponade. The patient does not have pneumoperitoneum and I have decreased suspicion of viscus perforation as possible referred pain. The patient does not have a history of heart failure and I have low suspicion for this. The patient does not have a diagnosis of COPD and is not wheezing today. The patient is not tachypneic or hypoxic. The patient is breathing comfortably and without pleuritic pain. The patient is not on hormonal therapy. The patient has no history of clotting or bleeding disorders. The patient has no calf tenderness. The patient has had no hemoptysis. I have decreased suspicion for PE. The patient's troponin and EKG are reassuring. I have low suspicion for acute coronary syndrome. The patient's HEART score is equal to or less than 3. This stratifies the patient into the low risk (<1%) group for an major adverse cardiac event within the next 30 days. Shared decision making was enacted. The risks and benefits of admission and discharge were discussed with the patient and it was ultimately decided that the patient would be discharged with close outpatient follow up and evaluation for functional testing within 72 hours. DISCHARGE Upon reevaluation of the patient, symptoms have improved. No emergent diagnoses were identified. At this time, I feel that the patient stable for discharge. The patient was instructed to follow-up with a primary care physician in 1-3 days. The patient will be given strict precautions with which to return to the emergency department. Prescriptions: Pepcid, Zofran The patient's blood pressure was elevated at greater than 120/80 while in the emergency department. The patient was otherwise stable with no evidence of hypertensive urgency or emergency. The patient does not require admission for blood pressure control. I have discussed with the patient the risks of hypertension. I have instructed the patient to return to the ER for any new or worsening symptoms including chest pain, shortness of breath, headache, blurred vision, confusion, nausea, vomiting or LOC. I have advised the patient to follow up with the primary care physician for outpatient monitoring and treatment for hypertension in 1-3 days. Disclaimer: Inadvertent spelling and grammatical errors are likely due to EHR/dictation software use and do not reflect on the overall quality of patient care. Note that the electronic time recorded on this note does not necessarily reflect the actual time of the patient encounter. Departure Diagnosis: Primary Impression: Nonspecific chest pain Additional Impressions: Epigastric pain Nausea GERD (gastroesophageal reflux disease) Esophagitis presence: esophagitis presence not specified Qualified Codes: K21.9 - Gastro-esophageal reflux disease without esophagitis Condition: Stable Patient Instructions: Chest Pain, Uncertain Cause, Epigastric Pain (Uncertain Cause), Gerd (Adult) Additional Instructions: Thank you for for coming to [facility] for your care today. Please ask your nurse or provider if you have questions about your care today and do not leave until all your questions have been answered. Please use any m edications given as directed and follow-up with your doctor (or the doctor you were referred to) in the next 1-3 days. If you do not have a primary care doctor you may follow up at the [facility] or formerly [facility] (listed below). You may also use motrin and tylenol as needed for fever and/or pain unless instructed otherwise by your provider or nurse. Indications for more urgent follow-up have been discussed, but you may return to the Emergency Department at ANY time for any worrisome or worsening symptoms. If you have abdominal pain, please know that no test or exam you received is per fect and you should follow up within 8 hours for continued pain. If you had any imaging studies today, such as an X-Ray or CT Scan, these studies will be reviewed later by a radiologist. You will be called if there are important findings that were not identified today, so make sure the contact info rmation you provided at registration is correct. If you received any narcotic pain control medicine today, such as Vicodin, Morphine or Dilaudid, your coordination and judgment may be affected for a number of hours. Please do not drive or operate heavy machinery, and you may want someone to assist you at home. If you were given a prescription for narcotic medication, be aware that it is very addictive- use sparingly and only if necessary. PLEASE SEEK FURTHER EVALUATION AND MANAGEMENT AT YOUR DOCTORS OFFICE WITHIN THE NEXT 1-3 DAYS. IT IS YOUR RESPONSIBILITY TO MAKE AN APPOINTMENT FOR FOLOW-UP CARE. IF YOU HAVE A PRIMARY DOCTOR, PLEASE CALL THEIR OFFICE TO SCHEDULE AN APPOINTMENT FOR FOLLOW UP. IF YOU DO NOT HAVE A PRIMARY DOCTOR YOU CAN CALL OUR PHYSICIAN REFERRAL HOTLINE AT IF YOU CAN NOT AFFORD TO SEE A PHYSICIAN YOU CAN CHOSE FROM THE FOLLOWING [facility]: [facility] [id number] [facility] [facility] [address] [facility] [place] [facility] [address] [facility] [facility] [address] [facility]. [facility] [place] [address] [facility]. [facility]. [address] KENDY SMITH MD Sep 02, 2018 22:40
[2018-09-02] MEDS ORDERED: ONDA8TAB9 PO (22:41)
[2018-09-02] MEDS ORDERED: FAMO-96 PO (22:41)
== END 2018-09-02 23:15 | disposition home or self-care (01) ==
LOC: E/R 18:31
DX: K21.9 Gastro-esophageal reflux disease without esophagitis (principal); F17.210 Nicotine dependence, cigarettes, uncomplicated
CPT/HCPCS: 71045; 80048; 83880; 84484; 85025; 85610; Z7610; 36415; 93005; 96374